=== PATIENT | female | born 1970 | race Caucasian/White ===

== ENCOUNTER 2017-09-11 08:32 | Day surgery (SDC) | payer MEDICARE ==
[2017-09-08 15:44] LABS: BASOPHILS % (AUTO) 0.9 % (0.0-5.0); EOSINOPHILS % (AUTO) 1.8 % (0.0-8.0); HEMATOCRIT 43.6 % (36-48); LYMPHOCYTES % (AUTO) 29.9 % (21.0-51.0); MEAN CORPUSCULAR HEMOGLOBIN 34.2 pg (27.0-33.0); MEAN CORPUSCULAR VOLUME 97.6 fL (79-99); MONOCYTES % (AUTO) 8.4 % (3.0-13.0); NUCLEATED RED BLOOD CELLS 0.1 % (0.0-0.19); PLATELET COUNT (AUTO) 210 K/uL (130-400); RED BLOOD CELL COUNT(AUTO) 4.46 MIL/uL (4.00-5.50); RED CELL DISTRIBUTION WIDTH 14.2 % (11.0-15.5); WHITE BLOOD COUNT (AUTO) 9.5 K/uL (4.8-10.8)
[2017-09-08 15:56] LABS: CREATININE 0.8 mg/dL (0.5-1.5); POTASSIUM 3.9 mmol/L (3.5-5.1)
[2017-09-08 16:07] VITALS: BP 91/60
[~2017-09-11] VITALS: Ht 165.1 cm; Wt 89.0 kg
[2017-09-11] VITALS (17 sets, daily range): BP systolic 91–108; BP diastolic 64–74
[~2017-09-11 08:32] MED LIST: ALBUTEROL INHALER IH; BUSP30TA2 PO; CLINDAMYCIN 900 MG/D5% WATER 50 ML IV SCH; CYCL10TA7 PO; FENO54TA6 PO; GABA-318 PO; PANT40TA25 PO; PHARMACY COMMUNICATION MISC SCH; RISP4TAB63 PO
[2017-09-11] MEDS ORDERED: LACTATED RINGERS 1000ML 1,000 ML IV ONE (09:17)
[2017-09-11] MEDS ORDERED: BUPIVACAINE/PF 0.25% 30ML VIAL IJ ONE (10:15)
[2017-09-11] MEDS ORDERED: LIDOCAINE PF 2% 5ML ABBOJECT ONE (11:05)
[2017-09-11] MEDS ORDERED: DEXAMETHASONE SOD PHOSPHATE 10MG/ML 1ML VIAL ONE (11:05)
[2017-09-11] MEDS ORDERED: GLYCOPYRROLATE 0.2 MG/ML 5 ML VIAL ONE (11:05)
[2017-09-11] MEDS ORDERED: LIDOCAINE HCL-MPF 1% 5ML AMP IJ ONE (11:05)
[2017-09-11] MEDS ORDERED: ROCURONIUM BROMIDE 10MG/1ML 5ML VL ONE (11:05)
[2017-09-11] MEDS ORDERED: LIDOCAINE HCL 2% JELLY 5 ML ONE (11:05)
[2017-09-11] MEDS ORDERED: ONDANSETRON HCL MDV 20ML 2 MG/ML VIAL ONE (11:05)
[2017-09-11] MEDS ORDERED: LIDOCAINE HCL 4% LTA SOL 4 ML VIAL ONE (11:05)
[2017-09-11] MEDS ORDERED: NEOSTIGMINE METHYLSULFATE 1MG/ML IV ONE (11:05)
[2017-09-11] MEDS ORDERED: FENTANYL CITRATE PF 50 MCG/1 ML 2ML VIAL ONE (11:06)
[2017-09-11] MEDS ORDERED: PROPOFOL 10 MG/ML 20ML VIAL IV ONE (11:06)
[2017-09-11] MEDS ORDERED: MIDAZOLAM HCL 1 MG/ML 2ML VIAL ONE (11:06)
[2017-09-11] MEDS ORDERED: MEPERIDINE-PF 25 MG/ML SYG ONE ×2 (12:30→12:38)
== END 2017-09-11 13:45 | disposition home or self-care (01) ==
LOC: DAH 08:32
PROVIDERS: ATTEND Surgery
DX: R10.9 Unspecified abdominal pain (principal); K63.89 Other specified diseases of intestine; Z98.84 Bariatric surgery status; J45.909 Unspecified asthma, uncomplicated; G47.00 Insomnia, unspecified; E78.00 Pure hypercholesterolemia, unspecified; K21.9 Gastro-esophageal reflux disease without esophagitis; Z98.890 Other specified postprocedural states; Z88.0 Allergy status to penicillin; Z68.32 Body mass index [BMI] 32.0-32.9, adult
CPT/HCPCS: 36415; 43235; 49320; 80048; 85025; A4344; A4450; A4606; A4649; C1769 ×3; J1100; J2001; J2175 ×2; J2250; J2704; J2710; J3010; J3490 ×5; J7030; J7120

== ENCOUNTER → 2017-12-16 | Outpatient (CLI) | payer MEDICARE ==
[~2017-12-16] MED LIST changes: -ALBUTEROL INHALER IH; -CLINDAMYCIN 900 MG/D5% WATER 50 ML IV SCH; -PHARMACY COMMUNICATION MISC SCH
== END | disposition home or self-care (01) ==
LOC: RAH 15:03
PROVIDERS: ATTEND Physician Assistant Medical
DX: Z12.31 Encounter for screening mammogram for malignant neoplasm of breast (principal)
CPT/HCPCS: 77067

== ENCOUNTER 2018-03-20 18:35 | Emergency (ER) | payer MEDICARE ==
[2018-03-20] MEDS ORDERED: KETOROLAC TROMETHAMINE 60 MG/2 ML VIAL ONE (18:57)
[2018-03-20] MEDS ORDERED: PROCHLORPERAZINE EDISYLATE 10 MG/2 ML VIAL ONE (18:57)
[2018-03-20] MEDS ORDERED: DIPHENHYDRAMINE HCL 25 MG CAPSULE ONE (18:57)
== END 2018-03-20 19:44 | disposition home or self-care (01) ==
LOC: EDH 18:35
DX: G43.909 Migraine, unspecified, not intractable, without status migrainosus (principal); J44.9 Chronic obstructive pulmonary disease, unspecified; E78.5 Hyperlipidemia, unspecified; F31.9 Bipolar disorder, unspecified; Z88.0 Allergy status to penicillin; Z72.0 Tobacco use
CPT/HCPCS: 96372 ×2; 99284; J0780; J1885; Q0163

== ENCOUNTER 2018-03-22 12:02 | Emergency (ER) | payer MEDICARE ==
[2018-03-22 12:36] LABS: BASOPHILS % (AUTO) 0.5 % (0.0-5.0); EOSINOPHILS % (AUTO) 0.5 % (0.0-8.0); HEMATOCRIT 41.1 % (36-48); LYMPHOCYTES % (AUTO) 13.2 % (21.0-51.0); MEAN CORPUSCULAR HEMOGLOBIN 31.4 pg (27.0-33.0); MEAN CORPUSCULAR HGB CONC 32.8 g/dL (32.0-36.0); MEAN CORPUSCULAR VOLUME 95.7 fL (79-99); NEUTROPHILS % (AUTO) 82.8 % (40.0-77.0); PLATELET COUNT (AUTO) 209 K/uL (130-400); RED BLOOD CELL COUNT(AUTO) 4.29 MIL/uL (4.00-5.50); RED CELL DISTRIBUTION WIDTH 14.1 % (11.0-15.5); WHITE BLOOD COUNT (AUTO) 12.8 K/uL (4.8-10.8)
[2018-03-22 12:40] LABS: APPEARANCE,URINE Clear (CLEAR); BILIRUBIN,URINE Negative (NEGATIVE); COLOR,URINE Dark Yellow (YELLOW); GLUCOSE, URINE (UA) Negative (NEGATIVE); KETONES,URINE Negative (NEGATIVE); LEUKOCYTE ESTERASE ,URINE Trace (NEGATIVE); NITRATE,URINE Negative (NEGATIVE); OCCULT BLOOD,URINE Negative (NEGATIVE); PH,URINE 6.5 (5.0-8.0); PROTEIN,URINE Negative (NEGATIVE)
[2018-03-22 12:48] LABS: CREATININE 0.9 mg/dL (0.5-1.5); POTASSIUM 3.9 mmol/L (3.5-5.1)
[2018-03-22 12:52] LABS: ALBUMIN 3.5 g/dL (3.5-5.0); BILIRUBIN,TOTAL 0.5 mg/dL (0.2-1.0); TOTAL PROTEIN, SERUM 7.2 g/dL (6.0-8.3)
[2018-03-22 12:53] LABS: BACTERIA,URINE Few /HPF (None Seen); RBC,URINE 0-1 /HPF (0-1); SQUAMOUS EPITHELIAL CELL,UR Few /HPF (0-2)
[2018-03-22] MEDS ORDERED: ONDANSETRON HCL 4 MG/2 ML VIAL ONE (13:04)
[2018-03-22] MEDS ORDERED: KETOROLAC TROMETHAMINE 30MG/ML ONE (13:04)
[2018-03-22] MEDS ORDERED: PROCHLORPERAZINE EDISYLATE 10 MG/2 ML VIAL ONE (13:05)
[2018-03-22] MEDS ORDERED: SODIUM CHLORIDE 0.9% 50 ML IV ONE (13:06)
== END 2018-03-22 14:26 | disposition home or self-care (01) ==
LOC: EDH 12:02
DX: R10.10 Upper abdominal pain, unspecified (principal); R51 Headache; R11.2 Nausea with vomiting, unspecified; R42 Dizziness and giddiness; R53.1 Weakness; J44.9 Chronic obstructive pulmonary disease, unspecified; E78.5 Hyperlipidemia, unspecified; F41.9 Anxiety disorder, unspecified; F32.9 Major depressive disorder, single episode, unspecified; Z88.0 Allergy status to penicillin; Z72.0 Tobacco use
CPT/HCPCS: 36415; 80053; 81001; 82150; 83690; 85025; 93005; 96374; 96375; 99285; J0780; J1885; J2405

== ENCOUNTER 2018-03-24 02:11 | Emergency (ER) | payer MEDICARE ==
[2018-03-24 03:02] LABS: BASOPHILS % (AUTO) 0.6 % (0.0-5.0); EOSINOPHILS % (AUTO) 1.8 % (0.0-8.0); HEMATOCRIT 37.9 % (36-48); LYMPHOCYTES % (AUTO) 19.1 % (21.0-51.0); MEAN CORPUSCULAR HEMOGLOBIN 31.7 pg (27.0-33.0); MEAN CORPUSCULAR HGB CONC 33.7 g/dL (32.0-36.0); MEAN CORPUSCULAR VOLUME 94.1 fL (79-99); MONOCYTES % (AUTO) 6.1 % (3.0-13.0); NEUTROPHILS % (AUTO) 72.4 % (40.0-77.0); PLATELET COUNT (AUTO) 194 K/uL (130-400); RED BLOOD CELL COUNT(AUTO) 4.03 MIL/uL (4.00-5.50); RED CELL DISTRIBUTION WIDTH 14.2 % (11.0-15.5); WHITE BLOOD COUNT (AUTO) 11.2 K/uL (4.8-10.8)
[2018-03-24 03:09] LABS: CREATININE 0.7 mg/dL (0.5-1.5); POTASSIUM 3.8 mmol/L (3.5-5.1)
[2018-03-24 03:16] LABS: ALBUMIN 3.1 g/dL (3.5-5.0); BILIRUBIN,TOTAL 0.3 mg/dL (0.2-1.0); TOTAL PROTEIN, SERUM 6.7 g/dL (6.0-8.3)
[2018-03-24 03:41] LABS: AMYLASE 20 U/L (25-115); LIPASE 98 U/L (114-286)
[2018-03-24 03:54] LABS: APPEARANCE,URINE Clear (CLEAR); BILIRUBIN,URINE Negative (NEGATIVE); COLOR,URINE Yellow (YELLOW); GLUCOSE, URINE (UA) Negative (NEGATIVE); KETONES,URINE Negative (NEGATIVE); LEUKOCYTE ESTERASE ,URINE Trace (NEGATIVE); NITRATE,URINE Negative (NEGATIVE); OCCULT BLOOD,URINE Negative (NEGATIVE); PROTEIN,URINE Negative (NEGATIVE)
[2018-03-24 04:01] LABS: AMPHET/METH SCREEN,URINE NEGATIVE (NEGATIVE); BARBITURATE SCREEN, URINE POSITIVE (NEGATIVE); BENZODIAZEPINES SCREEN,URINE NEGATIVE (NEGATIVE); CANNABINOID SCREEN,URINE NEGATIVE (NEGATIVE); COCAINE SCREEN,URINE NEGATIVE (NEGATIVE); OPIATE SCREEN,URINE POSITIVE (NEGATIVE); PHENCYCLIDINE SCREEN,URINE NEGATIVE (NEGATIVE)
[2018-03-24] MEDS ORDERED: DiphenhydrAMINE HCL 50 MG/ML VIAL ONE (04:14)
[2018-03-24] MEDS ORDERED: METOCLOPRAMIDE 10 MG/2 ML VIAL ONE (04:14)
[2018-03-24] MEDS ORDERED: SODIUM CHLORIDE 0.9% 1000ML 1,000 ML IV ONE ×2 (04:15→05:06)
[2018-03-24] MEDS ORDERED: ONDANSETRON HCL 4 MG/2 ML VIAL ONE (04:15)
[2018-03-24 04:21] LABS: BACTERIA,URINE Few /HPF (None Seen)
[2018-03-24] MEDS ORDERED: LEVOFLOXACIN 500 MG TABLET ONE (05:27)
== END 2018-03-24 05:39 | disposition home or self-care (01) ==
LOC: EDH 02:11
DX: N39.0 Urinary tract infection, site not specified (principal); E86.0 Dehydration; G44.209 Tension-type headache, unspecified, not intractable; R11.2 Nausea with vomiting, unspecified; J44.9 Chronic obstructive pulmonary disease, unspecified; E78.5 Hyperlipidemia, unspecified; Z88.0 Allergy status to penicillin; Z72.0 Tobacco use
CPT/HCPCS: 36415; 80053; 80305; 81001; 82150; 83690; 85025; 87088; 96361; 96374; 96375; 99284; J1200; J2405; J2765; J7030 ×2

== ENCOUNTER 2018-03-24 21:51 | Emergency (ER) | payer MEDICARE | END 2018-03-24 23:35 | disposition home or self-care (01) | LOC: EDH 21:51 | DX: G44.229 Chronic tension-type headache, not intractable (principal); J44.9 Chronic obstructive pulmonary disease, unspecified; F41.9 Anxiety disorder, unspecified; E78.5 Hyperlipidemia, unspecified; F31.9 Bipolar disorder, unspecified; Z88.0 Allergy status to penicillin; Z90.710 Acquired absence of both cervix and uterus; Z98.890 Other specified postprocedural states; Z72.0 Tobacco use | CPT/HCPCS: 99281 ==

== ENCOUNTER 2018-03-26 13:58 | Emergency (ER) | payer MEDICARE ==
[2018-03-26 14:51] LABS: APPEARANCE,URINE Clear (CLEAR); BILIRUBIN,URINE Negative (NEGATIVE); COLOR,URINE Yellow (YELLOW); GLUCOSE, URINE (UA) Negative (NEGATIVE); KETONES,URINE Negative (NEGATIVE); LEUKOCYTE ESTERASE ,URINE Negative (NEGATIVE); NITRATE,URINE Negative (NEGATIVE); OCCULT BLOOD,URINE Negative (NEGATIVE); PH,URINE 7.5 (5.0-8.0); PROTEIN,URINE Negative (NEGATIVE); UROBILINOGEN,URINE 0.2 mg/dL (0.2-1.0)
[2018-03-26] MEDS ORDERED: MAG HYDROX/AL HYDROX/SIMETH ES 30 ML SUSP UDCUP ONE (14:52)
[2018-03-26] MEDS ORDERED: ONDANSETRON HCL 4 MG/2 ML VIAL ONE (14:52)
[2018-03-26] MEDS ORDERED: DICYCLOMINE HCL 20 MG TAB ONE (14:52)
[2018-03-26] MEDS ORDERED: LIDOCAINE HCL 2% VISCOUS 15 ML UDCUP ONE (14:52)
[2018-03-26 14:59] LABS: AMPHET/METH SCREEN,URINE NEGATIVE (NEGATIVE); BARBITURATE SCREEN, URINE POSITIVE (NEGATIVE); BENZODIAZEPINES SCREEN,URINE NEGATIVE (NEGATIVE); CANNABINOID SCREEN,URINE NEGATIVE (NEGATIVE); COCAINE SCREEN,URINE NEGATIVE (NEGATIVE); OPIATE SCREEN,URINE POSITIVE (NEGATIVE); PHENCYCLIDINE SCREEN,URINE NEGATIVE (NEGATIVE)
[2018-03-26 15:02] LABS: BASOPHILS % (AUTO) 0.5 % (0.0-5.0); EOSINOPHILS % (AUTO) 0.7 % (0.0-8.0); HEMATOCRIT 38.3 % (36-48); LYMPHOCYTES % (AUTO) 17.6 % (21.0-51.0); MEAN CORPUSCULAR HEMOGLOBIN 31.8 pg (27.0-33.0); MEAN CORPUSCULAR HGB CONC 33.9 g/dL (32.0-36.0); MEAN CORPUSCULAR VOLUME 93.6 fL (79-99); MONOCYTES % (AUTO) 6.9 % (3.0-13.0); NEUTROPHILS % (AUTO) 74.3 % (40.0-77.0); NUCLEATED RED BLOOD CELLS 0.1 % (0.0-0.19); PLATELET COUNT (AUTO) 211 K/uL (130-400); RED BLOOD CELL COUNT(AUTO) 4.09 MIL/uL (4.00-5.50); RED CELL DISTRIBUTION WIDTH 14.1 % (11.0-15.5); WHITE BLOOD COUNT (AUTO) 11.7 K/uL (4.8-10.8)
[2018-03-26 15:13] LABS: CREATININE 0.9 mg/dL (0.5-1.5); POTASSIUM 3.2 mmol/L (3.5-5.1)
[2018-03-26 15:18] LABS: ALBUMIN 3.3 g/dL (3.5-5.0); BILIRUBIN,TOTAL 0.4 mg/dL (0.2-1.0); TOTAL PROTEIN, SERUM 6.9 g/dL (6.0-8.3)
[2018-03-26] MEDS ORDERED: IOHEXOL-350 75 ML VIAL IV ONE (15:37)
== END 2018-03-26 16:52 | disposition home or self-care (01) ==
LOC: EDH 13:58
DX: R10.13 Epigastric pain (principal); G43.909 Migraine, unspecified, not intractable, without status migrainosus; R11.2 Nausea with vomiting, unspecified; F41.9 Anxiety disorder, unspecified; F31.9 Bipolar disorder, unspecified; J44.9 Chronic obstructive pulmonary disease, unspecified; E78.5 Hyperlipidemia, unspecified; K75.9 Inflammatory liver disease, unspecified; I95.9 Hypotension, unspecified; Z72.0 Tobacco use
CPT/HCPCS: 36415; 74177; 80053; 80305; 81003; 83690; 85025; 96361; 96374; 99285; J2405; Q9967

== ENCOUNTER 2018-03-31 05:36 | Emergency (ER) | payer MEDICARE ==
[2018-03-31] MEDS ORDERED: METOCLOPRAMIDE 10 MG TABLET ONE (06:04)
[2018-03-31] MEDS ORDERED: DiphenhydrAMINE HCL 50 MG/ML VIAL ONE (06:04)
[2018-03-31] MEDS ORDERED: KETOROLAC TROMETHAMINE 60 MG/2 ML VIAL ONE (06:05)
== END 2018-03-31 06:25 | disposition home or self-care (01) ==
LOC: EDH 05:36
DX: G44.209 Tension-type headache, unspecified, not intractable (principal); M62.830 Muscle spasm of back; J44.9 Chronic obstructive pulmonary disease, unspecified; E78.5 Hyperlipidemia, unspecified; F31.9 Bipolar disorder, unspecified; Z88.0 Allergy status to penicillin; Z72.0 Tobacco use
CPT/HCPCS: 96372 ×2; 99284; J1200; J1885

== ENCOUNTER 2018-04-20 18:37 | Emergency (ER) | payer MEDICARE ==
[2018-04-20 19:14] LABS: APPEARANCE,URINE Clear (CLEAR); BILIRUBIN,URINE Negative (NEGATIVE); COLOR,URINE Yellow (YELLOW); GLUCOSE, URINE (UA) Negative (NEGATIVE); KETONES,URINE Negative (NEGATIVE); LEUKOCYTE ESTERASE ,URINE Trace (NEGATIVE); NITRATE,URINE Negative (NEGATIVE); OCCULT BLOOD,URINE Negative (NEGATIVE); PROTEIN,URINE Negative (NEGATIVE)
[2018-04-20 19:18] LABS: BASOPHILS % (AUTO) 0.8 % (0.0-5.0); EOSINOPHILS % (AUTO) 1.1 % (0.0-8.0); HEMATOCRIT 41.1 % (36-48); LYMPHOCYTES % (AUTO) 18.4 % (21.0-51.0); MEAN CORPUSCULAR HEMOGLOBIN 32.7 pg (27.0-33.0); MEAN CORPUSCULAR HGB CONC 34.6 g/dL (32.0-36.0); MEAN CORPUSCULAR VOLUME 94.6 fL (79-99); MONOCYTES % (AUTO) 6.3 % (3.0-13.0); NEUTROPHILS % (AUTO) 73.4 % (40.0-77.0); PLATELET COUNT (AUTO) 234 K/uL (130-400); RED BLOOD CELL COUNT(AUTO) 4.34 MIL/uL (4.00-5.50); RED CELL DISTRIBUTION WIDTH 14.9 % (11.0-15.5); WHITE BLOOD COUNT (AUTO) 11.6 K/uL (4.8-10.8)
[2018-04-20 19:36] LABS: CREATININE 0.8 mg/dL (0.5-1.5); POTASSIUM 3.4 mmol/L (3.5-5.1)
[2018-04-20 19:40] LABS: ALBUMIN 3.4 g/dL (3.5-5.0); BILIRUBIN,TOTAL 0.4 mg/dL (0.2-1.0); TOTAL PROTEIN, SERUM 7.4 g/dL (6.0-8.3)
[2018-04-20 19:53] LABS: RBC,URINE 0-1 /HPF (0-1)
[2018-04-20 19:54] LABS: BACTERIA,URINE Few /HPF (None Seen); SQUAMOUS EPITHELIAL CELL,UR Rare /HPF (0-2)
[2018-04-20] MEDS ORDERED: LIDOCAINE HCL 2% VISCOUS 15 ML UDCUP ONE (20:08)
[2018-04-20] MEDS ORDERED: FAMOTIDINE/PF 20 MG/2 ML VIAL IV ONE (20:09)
[2018-04-20] MEDS ORDERED: MAG HYDROX/AL HYDROX/SIMETH ES 30 ML SUSP UDCUP ONE (20:09)
== END 2018-04-20 22:16 | disposition home or self-care (01) ==
LOC: EDH 18:37
DX: K29.00 Acute gastritis without bleeding (principal); F41.9 Anxiety disorder, unspecified; F31.9 Bipolar disorder, unspecified; J44.9 Chronic obstructive pulmonary disease, unspecified; K75.9 Inflammatory liver disease, unspecified; E78.5 Hyperlipidemia, unspecified; I95.9 Hypotension, unspecified; G43.909 Migraine, unspecified, not intractable, without status migrainosus; Z90.710 Acquired absence of both cervix and uterus; Z98.890 Other specified postprocedural states; Z72.0 Tobacco use; Z88.0 Allergy status to penicillin
CPT/HCPCS: 36415; 80053; 81001; 82270; 83690; 85025; 86677; 96374; 99284; J3490

== ENCOUNTER 2018-04-22 14:36 | Emergency (ER) | payer MEDICARE ==
[~2018-04-22] VITALS: Ht 162.6 cm; Wt 89.8 kg
[2018-04-22 15:05] LABS: APPEARANCE,URINE Clear (CLEAR); BILIRUBIN,URINE Negative (NEGATIVE); COLOR,URINE Yellow (YELLOW); GLUCOSE, URINE (UA) Negative (NEGATIVE); KETONES,URINE Negative (NEGATIVE); LEUKOCYTE ESTERASE ,URINE Trace (NEGATIVE); NITRATE,URINE Negative (NEGATIVE); OCCULT BLOOD,URINE Negative (NEGATIVE); PH,URINE 8.5 (5.0-8.0); PROTEIN,URINE Negative (NEGATIVE); UROBILINOGEN,URINE 0.2 mg/dL (0.2-1.0)
[2018-04-22 15:06] LABS: HCG,QUAL RESULT NEGATIVE (NEGATIVE)
[2018-04-22 15:13] LABS: BASOPHILS % (AUTO) 0.6 % (0.0-5.0); EOSINOPHILS % (AUTO) 0.2 % (0.0-8.0); HEMATOCRIT 40.9 % (36-48); LYMPHOCYTES % (AUTO) 10.2 % (21.0-51.0); MEAN CORPUSCULAR HEMOGLOBIN 32.9 pg (27.0-33.0); MEAN CORPUSCULAR HGB CONC 34.8 g/dL (32.0-36.0); MEAN CORPUSCULAR VOLUME 94.7 fL (79-99); MONOCYTES % (AUTO) 7.4 % (3.0-13.0); NEUTROPHILS % (AUTO) 81.6 % (40.0-77.0); PLATELET COUNT (AUTO) 220 K/uL (130-400); RED BLOOD CELL COUNT(AUTO) 4.32 MIL/uL (4.00-5.50); WHITE BLOOD COUNT (AUTO) 11.7 K/uL (4.8-10.8)
[2018-04-22 15:14] LABS: AMPHET/METH SCREEN,URINE NEGATIVE (NEGATIVE); BARBITURATE SCREEN, URINE NEGATIVE (NEGATIVE); BENZODIAZEPINES SCREEN,URINE NEGATIVE (NEGATIVE); CANNABINOID SCREEN,URINE NEGATIVE (NEGATIVE); COCAINE SCREEN,URINE NEGATIVE (NEGATIVE); OPIATE SCREEN,URINE NEGATIVE (NEGATIVE); PHENCYCLIDINE SCREEN,URINE NEGATIVE (NEGATIVE)
[2018-04-22 15:25] LABS: CREATININE 0.8 mg/dL (0.5-1.5); POTASSIUM 4.6 mmol/L (3.5-5.1)
[2018-04-22 15:28] LABS: BACTERIA,URINE Rare /HPF (None Seen); RBC,URINE None Seen /HPF (0-1); WBC,URINE 0-1 /HPF (0-1)
[2018-04-22 15:29] LABS: MUCUS,URINE Moderate LPF (None Seen); TRANSITIONAL EPI CELLS,URINE Few /HPF (None Seen)
[2018-04-22 15:30] LABS: ALBUMIN 3.3 g/dL (3.5-5.0); BILIRUBIN,TOTAL 0.4 mg/dL (0.2-1.0); TOTAL PROTEIN, SERUM 7.5 g/dL (6.0-8.3)
[2018-04-22] MEDS ORDERED: HYDROXYZINE HCL 50 MG/ML 2 ML VIAL IM SCH (16:18)
== END 2018-04-22 17:01 | disposition home or self-care (01) ==
LOC: EDH 14:36
DX: F41.1 Generalized anxiety disorder (principal); F31.9 Bipolar disorder, unspecified; J44.9 Chronic obstructive pulmonary disease, unspecified; E78.5 Hyperlipidemia, unspecified; G43.909 Migraine, unspecified, not intractable, without status migrainosus; Z91.14 Patient's other noncompliance with medication regimen; Z88.0 Allergy status to penicillin
CPT/HCPCS: 36415; 80053; 80305; 81001; 81025; 82150; 83690; 85025; 96372; 99284; J3410

== ENCOUNTER 2018-06-23 21:09 | Emergency (ER) | payer MEDICARE ==
[2018-06-23 21:52] LABS: APPEARANCE,URINE CLOUDY (CLEAR); BILIRUBIN,URINE MODERATE (NEGATIVE); COLOR,URINE YELLOW (YELLOW); GLUCOSE, URINE (UA) NEGATIVE (NEGATIVE); KETONES,URINE 15 mg/dL (NEGATIVE); LEUKOCYTE ESTERASE ,URINE NEGATIVE (NEGATIVE); NITRATE,URINE NEGATIVE (NEGATIVE); OCCULT BLOOD,URINE NEGATIVE (NEGATIVE); PH,URINE 5.5 (5.0-8.0); PROTEIN,URINE 100 (NEGATIVE)
[2018-06-23 22:00] LABS: BACTERIA,URINE Few /HPF (None Seen); RBC,URINE 0-1 /HPF (0-1); SQUAMOUS EPITHELIAL CELL,UR Few /HPF (0-2); TRANSITIONAL EPI CELLS,URINE Few /HPF (None Seen); WBC,URINE 0-1 /HPF (0-1)
[2018-06-23 22:01] LABS: MUCUS,URINE Rare LPF (None Seen)
[2018-06-23] MEDS ORDERED: HYDROCODONE/ACETAMINOPHEN 10/325 MG TAB ONE (22:39)
[2018-06-23] MEDS ORDERED: LORAZEPAM 1 MG TABLET ONE (22:40)
== END 2018-06-23 23:22 | disposition home or self-care (01) ==
LOC: EDH 21:09
DX: M54.5 Low back pain (principal); F41.9 Anxiety disorder, unspecified; F32.9 Major depressive disorder, single episode, unspecified; J44.9 Chronic obstructive pulmonary disease, unspecified; E78.5 Hyperlipidemia, unspecified; G89.29 Other chronic pain; Z72.0 Tobacco use; Z98.890 Other specified postprocedural states; Z90.710 Acquired absence of both cervix and uterus
CPT/HCPCS: 81001; 93005

== ENCOUNTER 2018-08-09 16:11 | Emergency (ER) | payer MEDICARE ==
[~2018-08-09 16:11] MED LIST changes: -GABA-318 PO; +GABA600T10 PO
[2018-08-09] MEDS ORDERED: ACETAMINOPHEN-CODEINE 300/30MG TAB ONE (16:33)
[2018-08-09] MEDS ORDERED: LIDOCAINE 5% TOPICAL PATCH TP ONE (16:33)
[2018-08-09] MEDS ORDERED: CYCLOBENZAPRINE HCL 10 MG TABLET ONE (16:35)
== END 2018-08-09 17:55 | disposition home or self-care (01) ==
LOC: EDH 16:11
DX: S39.012A Strain of muscle, fascia and tendon of lower back, initial encounter (principal); G89.29 Other chronic pain; F11.10 Opioid abuse, uncomplicated; F31.9 Bipolar disorder, unspecified; F41.9 Anxiety disorder, unspecified; J44.9 Chronic obstructive pulmonary disease, unspecified; E78.5 Hyperlipidemia, unspecified; I95.9 Hypotension, unspecified; Z90.710 Acquired absence of both cervix and uterus; Z98.890 Other specified postprocedural states; Z72.0 Tobacco use; Z88.0 Allergy status to penicillin; X58.XXXA Exposure to other specified factors, initial encounter; Y93.89 Activity, other specified; Y92.89 Other specified places as the place of occurrence of the external cause; Y99.8 Other external cause status
CPT/HCPCS: 72100

== ENCOUNTER 2018-08-15 10:14 | Emergency (ER) | payer MEDICARE ==
[2018-08-15] MEDS ORDERED: DiphenhydrAMINE HCL 50 MG/ML VIAL ONE (10:26)
== END 2018-08-15 10:44 | disposition home or self-care (01) ==
LOC: EDH 10:14
DX: F41.1 Generalized anxiety disorder (principal); J44.9 Chronic obstructive pulmonary disease, unspecified; F31.9 Bipolar disorder, unspecified; E78.5 Hyperlipidemia, unspecified; G43.909 Migraine, unspecified, not intractable, without status migrainosus; Z88.0 Allergy status to penicillin; Z72.0 Tobacco use; Z90.710 Acquired absence of both cervix and uterus; Z98.890 Other specified postprocedural states
CPT/HCPCS: 96372; 99284; J1200

== ENCOUNTER 2018-10-08 13:00 | Observation (INO) | payer MEDICARE ==
[~2018-10-08] VITALS: Ht 162.6 cm; Wt 72.0 kg
[~2018-10-08 13:00] MED LIST changes: -BUSP30TA2 PO; -CYCL10TA7 PO; -FENO54TA6 PO; -GABA600T10 PO; -RISP4TAB63 PO
[2018-10-08 13:32] LABS: BASOPHILS % (AUTO) 0.9 % (0.0-5.0); EOSINOPHILS % (AUTO) 0.4 % (0.0-8.0); HEMATOCRIT 42.6 % (36-48); LYMPHOCYTES % (AUTO) 23.3 % (21.0-51.0); MEAN CORPUSCULAR HEMOGLOBIN 32.2 pg (27.0-33.0); MEAN CORPUSCULAR HGB CONC 33.9 g/dL (32.0-36.0); MONOCYTES % (AUTO) 4.9 % (3.0-13.0); NEUTROPHILS % (AUTO) 70.5 % (40.0-77.0); NUCLEATED RED BLOOD CELLS 0.1 % (0.0-0.19); PLATELET COUNT (AUTO) 187 K/uL (130-400); RED BLOOD CELL COUNT(AUTO) 4.48 MIL/uL (4.00-5.50); RED CELL DISTRIBUTION WIDTH 16.2 % (11.0-15.5); WHITE BLOOD COUNT (AUTO) 9.6 K/uL (4.8-10.8)
[2018-10-08 13:34] VITALS: BP 104/75
[2018-10-08 14:07] LABS: INR 0.94 (0.85-1.15); PARTIAL THROMBOPLASTIN TIME 31.1 SEC (26.3-35.5); PROTHROMBIN TIME 9.9 SEC (9.6-11.6)
[2018-10-08 14:10] LABS: CREATININE 0.8 mg/dL (0.5-1.5); POTASSIUM 4.1 mmol/L (3.5-5.1)
[2018-10-08] MEDS ORDERED: QUET300T44 PO (14:20)
[2018-10-08] MEDS ORDERED: DULO20 PO (14:20)
[2018-10-08] MEDS ORDERED: VALP250S4 PO (14:20)
[2018-10-08] MEDS ORDERED: BUSP10TA3 PO (14:20)
[2018-10-11] VITALS (20 sets, daily range): BP systolic 93–123; BP diastolic 44–94
[2018-10-11] MEDS: CLINDAMYCIN 900 MG/D5% WATER 50 ML IV SCH ×2 (07:00→08:30)
[2018-10-11] MEDS ORDERED: LACTATED RINGERS 1000ML 1,000 ML IV ONE (07:16)
[2018-10-11] MEDS ORDERED: SUCCINYLCHOLINE 200MG/10ML SYR ONE (08:16)
[2018-10-11] MEDS ORDERED: DEXAMETHASONE SOD PHOSPHATE 10MG/ML 1ML VIAL ONE (08:16)
[2018-10-11] MEDS ORDERED: LIDOCAINE PF 2% 5ML ABBOJECT ONE (08:16)
[2018-10-11] MEDS ORDERED: ONDANSETRON HCL 4 MG/2 ML VIAL ONE (08:16)
[2018-10-11] MEDS ORDERED: GLYCOPYRROLATE 1 MG/5 ML SYRINGE ONE (08:16)
[2018-10-11] MEDS ORDERED: MIDAZOLAM HCL 1 MG/ML 2ML VIAL ONE (08:16)
[2018-10-11] MEDS ORDERED: NEOSTIGMINE 5MG/5ML SYR IV ONE (08:17)
[2018-10-11] MEDS ORDERED: PROPOFOL 10 MG/ML 20ML VIAL IV ONE (08:17)
[2018-10-11] MEDS ORDERED: ROCURONIUM 10MG/1ML SYR 10 MG/ML ML ONE ×2 (08:17→09:46)
[2018-10-11] MEDS ORDERED: FENTANYL CITRATE PF 50 MCG/1 ML 2ML VIAL ONE (08:17)
[2018-10-11] MEDS ORDERED: MEPERIDINE-PF 25 MG/ML SYG ONE ×2 (11:15→11:31)
--- NOTE | 2018-10-11 12:11 | NUR ---
POST SURGERY PATIENT RECEIVED FROM PACU VIA HOSPITAL BED IN STABLE CONDITION. SPOUSE IS IN ROOM. BOTH HAVE BEEN ORIENTED TO ROOM AND USE OF CALL LIGHT. ABDOMINAL BINDER IN PLACE ALONG WITH [address]. IV IS PATENT WITH NO REDNESS OR SWELLING NOTED TO SITE. POST OP VITAL SIGNS HAVE BEEN INITIATED. BED IS IN LOWEST POSITION AND LOCKED WITH PERSONAL ITEMS WITHIN REACH. WILL CONTINUE TO MONITOR.
[2018-10-11] MEDS: LACTATED RINGERS 1000ML 1,000 ML IV SCH ×2 (12:58→16:33)
[2018-10-11] MEDS: CLINDAMYCIN 600 MG/D5% WATER 50 ML IV SCH ×2 (12:58→19:50)
[2018-10-11] MEDS ORDERED: MORPHINE SULFATE 4 MG/1ML SYG IVP PRN (13:00)
[2018-10-11] MEDS: VALPROATE SOD 250 MG/5 ML (PO) PO SCH ×2 (14:00→20:53)
[2018-10-11] MEDS: BUSPIRONE HCL 5 MG TABLET PO SCH ×3 (14:00→19:51)
--- NOTE | 2018-10-11 15:03 | NUR ---
DCP CM met with pt discussed dc plans. Pt is independent prior to admission, lives at home with spouse. Denies any equipments/services. Pt feels safe to go back home, still drives, spouse able to assist with transportation and needs. DC plan to home once stable. CM to cont to follow up. Addendum: 10/11/18 at 1504 by RAUL HERRERA LVN CM Amended: Links added.
[2018-10-11] MEDS ORDERED: KETOROLAC TROMETHAMINE 30MG/ML ONE (15:43)
[2018-10-11] MEDS: KETOROLAC TROMETHAMINE 30MG/ML IV PRN ×2 (15:50→22:54)
[2018-10-11] MEDS: HYDROMORPHONE HCL 2 MG TAB PO PRN ×2 (16:32→20:36)
[2018-10-11] MEDS: ONDANSETRON HCL 4 MG/2 ML VIAL IVP PRN (20:36)
[2018-10-11] MEDS ORDERED: QUETIAPINE FUMARATE 100 MG TAB PO SCH (21:00)
[2018-10-12] MEDS: HYDROMORPHONE HCL 2 MG TAB PO PRN ×3 (00:24→08:50)
[2018-10-12 04:00] VITALS: BP 120/86
[2018-10-12] MEDS: CLINDAMYCIN 600 MG/D5% WATER 50 ML IV SCH ×2 (04:20→13:00)
[2018-10-12 04:27] LABS: MEAN CORPUSCULAR HEMOGLOBIN 32.5 pg (27.0-33.0); MEAN CORPUSCULAR HGB CONC 34.1 g/dL (32.0-36.0); MEAN CORPUSCULAR VOLUME 95.1 fL (79-99); PLATELET COUNT (AUTO) 164 K/uL (130-400); RED BLOOD CELL COUNT(AUTO) 3.68 MIL/uL (4.00-5.50); RED CELL DISTRIBUTION WIDTH 16.8 % (11.0-15.5); WHITE BLOOD COUNT (AUTO) 13.1 K/uL (4.8-10.8)
[2018-10-12] MEDS: ONDANSETRON HCL 4 MG/2 ML VIAL IVP PRN (04:35)
[2018-10-12 04:50] LABS: CREATININE 0.8 mg/dL (0.5-1.5); POTASSIUM 3.7 mmol/L (3.5-5.1)
[2018-10-12] MEDS: KETOROLAC TROMETHAMINE 30MG/ML IV PRN (06:26)
[2018-10-12] MEDS ORDERED: PANTOPRAZOLE SODIUM 40 MG TABLET.DR PO SCH (07:30)
[2018-10-12 07:51] VITALS: BP 122/73
[2018-10-12] MEDS: BUSPIRONE HCL 5 MG TABLET PO SCH ×2 (08:49→13:42)
[2018-10-12] MEDS: VALPROATE SOD 250 MG/5 ML (PO) PO SCH ×2 (08:50→13:42)
[2018-10-12] MEDS ORDERED: DULOXETINE HCL 30 MG CAP PO SCH (09:00)
[2018-10-12] MEDS: LACTATED RINGERS 1000ML 1,000 ML IV SCH (09:02)
--- NOTE | 2018-10-12 11:00 | NUR ---
MAGALYS GALE PA FOR DR. BARNES HERE TO SEE PATIENT. PATIENT REPORTED TO MAGALYS GALE THAT SHE WAS ACTIVELY PASSING FLATUS, BUT NO BOWEL MOVEMENT YET. MAGALYS GALE INSTRUCTED PATIENT HE WANTED ABDOMINAL PAIN TO BE UNDER CONTROL WITH ORAL PAIN MEDICATIONS PRIOR TO DISCHARGE LATER TODAY. PATIENT AGREED. MAGALYS GALE GAVE PATIENT FURTHER INSTRUCTIONS AND PLACED ORDERS. REFERENCE TO [facility]URSING COMMUNICATION ORDER AND MEDICATION ORDERS PLACED.
[2018-10-12 11:24] VITALS: BP 122/85
[2018-10-12] MEDS ORDERED: ACETAMINOPHEN-CODEINE 300/30MG TAB PO PRN (11:30)
--- NOTE | 2018-10-12 15:37 | NUR ---
DISCHARGE DISCHARGE TEACHING PROVIDED TO PATIENT. RX TEACHING PROVIDED TO PATIENT. INFORMED OF SCHEDULED F/U WITH DR. BARNES. TEACHING PROVIDED TO LULU DRAIN CARE AND HOME AND HOW TO EMPTY DRAINS AND RECORD LULU DRAIN OUTPUT, PROVIDED TEACHING ON HOW TO "MILK" LULU DRAIN TUBING. PATIENT VERBALIZED UNDERSTANDING OF DISCHARGE TEACHING. REMOVED 20G IV FROM LEFT WRIST, CATHETER INTACT. PATIENT HAS ABDOMINAL BINDER IN PLACE, RIGHT AND LEFT LOWER ABDOMINAL LULU DRAIN IN PLACE AND SECURED TO PATIENT. PATIENT TO BE DRIVEN HOME BY HER .
== END 2018-10-12 16:11 | disposition home or self-care (01) ==
LOC: DAHIP 10-11 06:17 → 4BH 10-11 11:28 → EDSTATUS 10-11 13:00
PROVIDERS: ADMIT Surgery; ATTEND Surgery
DX: K43.2 Incisional hernia without obstruction or gangrene (principal); M79.3 Panniculitis, unspecified; Z79.899 Other long term (current) drug therapy; Z79.01 Long term (current) use of anticoagulants
CPT/HCPCS: 15830; 36415 ×3; 80048 ×2; 85025; 85027; 85610; 85730; 86850 ×2; 86900 ×2; 86901 ×2; 96365; 96366 ×2; 96375 ×2; 96376 ×2; A4450; A4452; A4510 ×2; A4649; A4930; G0378 ×35; J0330; J1100; J1885 ×3; J2001; J2175 ×2; J2250; J2270; J2405 ×3; J2704; J2710; J3010; J3490 ×5; J7120 ×3; 96374

== ENCOUNTER 2018-11-10 10:26 | Emergency (ER) | payer MEDICARE ==
[~2018-11-10 10:26] MED LIST changes: +BUSP10TA3 PO; +DULO20 PO; +QUET300T44 PO; +VALP250S4 PO
[2018-11-10] MEDS ORDERED: ONDANSETRON HCL 4 MG/2 ML VIAL ONE (11:06)
[2018-11-10] MEDS ORDERED: SODIUM CHLORIDE 0.9% 1000ML 1,000 ML IV ONE (11:10)
[2018-11-10 11:16] LABS: BASOPHILS % (AUTO) 0.4 % (0.0-5.0); EOSINOPHILS % (AUTO) 1.1 % (0.0-8.0); HEMATOCRIT 38.2 % (36-48); LYMPHOCYTES % (AUTO) 14.9 % (21.0-51.0); MEAN CORPUSCULAR HEMOGLOBIN 33.1 pg (27.0-33.0); MEAN CORPUSCULAR HGB CONC 34.8 g/dL (32.0-36.0); MEAN CORPUSCULAR VOLUME 95.3 fL (79-99); MONOCYTES % (AUTO) 7.5 % (3.0-13.0); NEUTROPHILS % (AUTO) 76.1 % (40.0-77.0); PLATELET COUNT (AUTO) 125 K/uL (130-400); RED BLOOD CELL COUNT(AUTO) 4.01 MIL/uL (4.00-5.50); RED CELL DISTRIBUTION WIDTH 16.4 % (11.0-15.5); WHITE BLOOD COUNT (AUTO) 7.4 K/uL (4.8-10.8)
[2018-11-10 11:26] LABS: CREATININE 0.8 mg/dL (0.5-1.5); POTASSIUM 3.6 mmol/L (3.5-5.1)
[2018-11-10 11:32] LABS: ALBUMIN 3.4 g/dL (3.5-5.0); BILIRUBIN,TOTAL 0.2 mg/dL (0.2-1.0)
== END 2018-11-10 14:17 | disposition home or self-care (01) ==
LOC: EDH 10:26
DX: E86.0 Dehydration (principal); F31.9 Bipolar disorder, unspecified; F41.9 Anxiety disorder, unspecified; J44.9 Chronic obstructive pulmonary disease, unspecified; E78.5 Hyperlipidemia, unspecified; Z88.0 Allergy status to penicillin; Z72.0 Tobacco use
CPT/HCPCS: 36415; 80053; 82550; 84484; 85025; 93005; 96361; 96374; 99285; J2405; J7030

== ENCOUNTER → 2018-12-14 | Outpatient (CLI) | payer MEDICARE | END | disposition home or self-care (01) | LOC: OIH 07:50 | PROVIDERS: ATTEND Family Medicine | DX: M19.041 Primary osteoarthritis, right hand (principal); M19.031 Primary osteoarthritis, right wrist; M85.841 Other specified disorders of bone density and structure, right hand | CPT/HCPCS: 73110; 73130 ==

== ENCOUNTER → 2019-04-12 | Outpatient (CLI) | payer OTHER, MEDICARE | END | disposition home or self-care (01) | LOC: OIH 12:56 | PROVIDERS: ATTEND Family Medicine | DX: J44.1 Chronic obstructive pulmonary disease with (acute) exacerbation (principal) | CPT/HCPCS: 71046 ==

== ENCOUNTER → 2019-12-08 | Outpatient (CLI) | payer OTHER, MEDICARE ==
[~2019-12-08] MED LIST changes: -PANT40TA25 PO; +PANT40TA54 PO
== END | disposition home or self-care (01) ==
LOC: OIH 15:13
PROVIDERS: ATTEND Family Medicine
DX: M85.871 Other specified disorders of bone density and structure, right ankle and foot (principal); M25.571 Pain in right ankle and joints of right foot
CPT/HCPCS: 73610

== ENCOUNTER → 2020-04-26 | Outpatient (CLI) | payer OTHER, MEDICARE ==
[2020-04-26 10:43] LABS: BASOPHILS % (AUTO) 0.8 % (0.0-5.0); HEMATOCRIT 33.3 % (36-48); MEAN CORPUSCULAR HEMOGLOBIN 25.5 pg (27.0-33.0); MEAN CORPUSCULAR HGB CONC 30.6 g/dL (32.0-36.0); MEAN CORPUSCULAR VOLUME 83.3 fL (79-99); MONOCYTES % (AUTO) 6.2 % (3.0-13.0); NEUTROPHILS % (AUTO) 72.6 % (40.0-77.0); PLATELET COUNT (AUTO) 212 K/uL (130-400); RED CELL DISTRIBUTION WIDTH 19.4 % (11.0-15.5); WHITE BLOOD COUNT (AUTO) 7.9 K/uL (4.8-10.8)
[2020-04-26 11:10] LABS: CREATININE 0.9 mg/dL (0.5-1.5); POTASSIUM 4.1 mmol/L (3.5-5.1)
== END | disposition home or self-care (01) ==
LOC: RAH 09:52
PROVIDERS: ATTEND Surgery
DX: K76.0 Fatty (change of) liver, not elsewhere classified (principal)
CPT/HCPCS: 36415; 76705; 80048; 85025

== ENCOUNTER → 2020-10-03 | Outpatient (CLI) | payer OTHER, MEDICARE ==
[~2020-10-03] MED LIST changes: +QUET300T18 PO; -QUET300T44 PO
== END | disposition home or self-care (01) ==
LOC: OIH 10:07
PROVIDERS: ATTEND Family Medicine
DX: M41.84 Other forms of scoliosis, thoracic region (principal); Z00.00 Encounter for general adult medical examination without abnormal findings
CPT/HCPCS: 71046

== ENCOUNTER → 2021-06-10 | Outpatient (CLI) | payer OTHER, MEDICARE ==
[~2021-06-10] MED LIST changes: -QUET300T18 PO; +QUET300T19 PO
== END | disposition home or self-care (01) ==
LOC: OIH 09:11
PROVIDERS: ATTEND Neuromusculoskeletal Medicine & OMM
DX: M85.88 Other specified disorders of bone density and structure, other site (principal); M54.2 Cervicalgia
CPT/HCPCS: 72040

== ENCOUNTER → 2022-03-26 | Outpatient (CLI) | payer OTHER, MEDICARE | END | disposition home or self-care (01) | LOC: RAH 14:16 | PROVIDERS: ATTEND Family Medicine | DX: R92.8 Other abnormal and inconclusive findings on diagnostic imaging of breast (principal); N64.4 Mastodynia | CPT/HCPCS: 77066 ==

== ENCOUNTER → 2023-04-08 | Outpatient (CLI) | payer OTHER, MEDICARE | END | disposition home or self-care (01) | LOC: RAH 10:40 | PROVIDERS: ATTEND Family Medicine | DX: N64.4 Mastodynia (principal) | CPT/HCPCS: 77066 ==

== ENCOUNTER → 2024-04-13 | Outpatient (CLI) | payer OTHER, MEDICARE | END | disposition home or self-care (01) | LOC: RAH 13:34 | PROVIDERS: ATTEND Family Medicine | DX: Z12.31 Encounter for screening mammogram for malignant neoplasm of breast (principal); R92.323 Mammographic fibroglandular density, bilateral breasts | CPT/HCPCS: 77067 ==

== ENCOUNTER → 2025-06-21 | Outpatient (CLI) | payer OTHER, MEDICARE ==
[~2025-06-21] MED LIST changes: +DIATR MEGLU/DIATRIZOATE SODIUM 30 ML BOTTLE ONE; +VALP250S19 PO; -VALP250S4 PO
--- NOTE | 2025-06-21 11:42 | HMCIMG ---
DOUBLE CONTRAST UPPER GI SERIES with small bowel follow-through CLINICAL HISTORY: GERD, vomiting without nausea: Finding: The study was performed using provocative maneuvers After swallowing effervescent crystal and thick barium, there is no definite intrinsic or extrinsic lesion seen in the esophagus. There is mild grade 1 esophageal reflux there is no hiatal hernia. The stomach has partial gastrectomy with gastrojejunostomy anastomosis appears to be patent. The rugal folds appear to be normal. The duodenal bulb, duodenal sweep, and upper jejunum appear to be normal. The small bowel follow-through demonstrated normal transit time was 15 minutes barium has reached the large bowel. Fluoroscopy time: 0.9 minutes. IMPRESSION: Partial gastrectomy with patent gastrojejunostomy anastomosis Grade 1 esophageal reflux Small bowel follow-through normal demonstrated normal transit time was 50 minutes the barium has reached the rectum..
== END | disposition home or self-care (01) ==
LOC: RAH 08:11
PROVIDERS: ATTEND Pediatrics
DX: K21.9 Gastro-esophageal reflux disease without esophagitis (principal); R11.11 Vomiting without nausea; Z90.49 Acquired absence of other specified parts of digestive tract
CPT/HCPCS: 74240; Q9963